=== PATIENT | female | born 1975 | race Two or more races ===

== ENCOUNTER 2019-06-12 00:59 | Emergency (ER) | payer OTHER ==
[~2019-06-12] VITALS: Ht 167.6 cm; Wt 73.5 kg
[2019-06-12] MEDS ORDERED: CIPRO500 MG PO (07:39)
[2019-06-12] MEDS ORDERED: KETO10TA2 PO (07:39)
== END 2019-06-12 07:52 ==
LOC: ER 00:59
DX: N23 Unspecified renal colic (principal)

== ENCOUNTER 2024-12-25 14:03 | Emergency (ER) | payer OTHER ==
[~2024-12-25] VITALS: Ht 167.6 cm; Wt 70.8 kg
[~2024-12-25 14:03] MED LIST: CIPRO500 MG PO; KETO10TA2 PO
[2024-12-25] MEDS ORDERED: ZOFRAN8 MG PO (16:23)
[2024-12-25] MEDS ORDERED: PEPCID AC20 MG PO (16:23)
== END 2024-12-25 16:34 | disposition home or self-care (01) ==
LOC: ER 14:06
DX: A90 Dengue fever [classical dengue] (principal)